=== PATIENT | male | born 1980 | race Two or more races ===

== ENCOUNTER 2017-12-01 03:08 | Emergency (ER) | payer SELFPAY ==
[~2017-12-01] VITALS: Ht 162.6 cm; Wt 72.6 kg
[2017-12-01 03:18] VITALS: BP 112/80
== END 2017-12-01 08:00 | disposition left against medical advice (07) ==
LOC: ER 03:08 → EDBD 03:08 → ER 08:00
DX: K92.2 Gastrointestinal hemorrhage, unspecified (principal); Z53.21 Procedure and treatment not carried out due to patient leaving prior to being seen by health care provider